=== PATIENT | female | born 1995 | race Caucasian/White ===

== ENCOUNTER 2017-06-16 11:10 | Emergency (ER) | payer BC ==
--- NOTE | 2017-06-16 12:31 | EDPHY ---
General Narrative: CHIEF COMPLAINT: Left toe injury HISTORY OF PRESENT ILLNESS: Patient complains of left toe injury last night. She said she "didn't quite clear the couch," striking her left little toe on the couch. She bent that awkwardly. She says that may have been dislocated and she had reduced it accidentally while looking at it. Significant pain in the toe. There is some bruising around that an at the distal midfoot. No pain in the left heel, ankle , chapman or knee. No head strike or loss of conscious. No injury or pain elsewhere. Worse with palpation and movement. Improved when samson-taped to the next toe. No numbness or tingling. No other associated complaints or modifying factors. ESTABLISHED ORTHOPEDIST: None REVIEW OF SYSTEMS: Ten systems reviewed and are negative unless otherwise noted in the HPI PAST MEDICAL HISTORY: None PAST SURGICAL HISTORY: None SOCIAL HISTORY: Nonsmoker. [employer]. Originally from [place] FAMILY HISTORY: Noncontributory EXAMINATION General Appearance: Alert, no distress Cardiovascular: Symmetric DP and PT pulses 2+. Brisk cap refill Neurological: A&O, light sensation symmetric in the top of the feet. Normal proprioception of the great toe on the left foot. No footdrop Skin: Warm and dry, no rash. Ecchymosis at the left little toe and over the distal left midfoot. No puncture laceration Extremities: Tenderness of the left little toe and left 5th metatarsal. No crepitus or deformity of the midfoot. There is crepitus of the proximal phalanx of the left little toe. Range of motion of the feet symmetric. No tenderness to firm palpation of the left calcaneus Psychiatric: Mood and affect normal DIFFERENTIAL DIAGNOSES: Including but not limited to fracture, dislocation, fracture dislocation, sprain , strain MDM: 12:30 p.m. Acute, closed, nondisplaced fracture of the left 5th toe. Neurovascular intact. She will be placed in a postoperative shoe. We discussed ice, elevation anti-inflammatories. We discussed follow up with orthopedist or [employer] superintendent. We discussed ED precautions, light activity and physical activity excuse. She is comfortable with this plan and discharged home stable condition. SUPERVISION: This patient was independently evaluated without direct involvement of or examination by the attending physician. ED Precautions: Worsening pain. Erythema, edema, cyanosis, pallor, paresthesia or anesthesia. - Diagnostics Imaging Results: Imaging Impressions Toe X-Ray 06/16/17 11:21 Impression: Oblique minimally displaced minimally comminuted fracture of the proximal phalanx of the 5th toe. - History Smoking Status: Never smoked - Objective Vital Signs: Initial Vital Signs Temperature (C) 98.8 F 06/16/17 11:15 Heart Rate 84 06/16/17 11:15 Respiratory Rate 16 06/16/17 11:15 Blood Pressure 144/90 H 06/16/17 11:15 O2 Sat (%) 97 06/16/17 11:15 O2 Delivery Mode Room Air Allergies/Adverse Reactions: shellfish Allergy (Severe, Uncoded 06/16/17 11:19) throat swells up Home Medications: Medication Instructions Recorded Control Pills 06/16/17 Departure - Departure Disposition: Home, Routine, Self-Care Clinical Impression: Closed fracture of phalanx of left fifth toe Qualifiers: Encounter type: initial encounter Qualified Code(s): S92.502A - Displaced unspecified fracture of left lesser toe(s), initial encounter for closed fracture Condition: Good Instructions: Toe Fracture (ED) Additional Instructions: 1. Postop shoe as discussed 2. Ice, elevation and anti-inflammatories as discussed 3. Light activity recommended 4. Follow up with [employer] superintendent or orthopedist for definitive care as provided Referrals: Hollis Morales MD [Medical Doctor] - As per Instructions Juan Linares DPM [Doctor of Podiatric Medicine] - As per Instructions Stand Alone Forms: Physical Education Excuse
[2017-06-16 12:53] VITALS: BP 126/81; PULSE 77; RESP 18; TEMP 97.9; O2SAT 99
== END 2017-06-16 12:53 | disposition home or self-care (01) ==
DX: S92.512A Displaced fracture of proximal phalanx of left lesser toe(s), initial encounter for closed fracture (principal); W22.8XXA Striking against or struck by other objects, initial encounter; Y99.8 Other external cause status
CPT/HCPCS: L4386